=== PATIENT | female | born 1975 | race Caucasian/White ===

== ENCOUNTER 2020-12-02 14:28 | Emergency (ER) | payer OTHER, SELFPAY ==
--- NOTE | ~2020-12-02 | XR_ITS ---
EXAMINATION: XR cervical spine 4-5V DATE: 12/02/2020 15:13 INDICATION: Neck pain. Injury. TECHNIQUE: 6 views of cervical spine were obtained. COMPARISON: None. FINDINGS: There is 9 degrees dextrocurvature of cervical spine. Vertebral body heights are normal. Th ere is mildly decreased disc height at C3-C4 and C4-C5, moderately decreased disc height at C5-C6, an d severely decreased disc height at C6-C7. There is multilevel uncovertebral joint osteoarthritis, se avila on the left at C5-C6 and bilaterally at C6-C7. There is multilevel mild to moderate facet joint osteoarthritis. There is multilevel mild neural foraminal stenosis bilaterally. On the right, there i s moderate neural foraminal stenosis at C6-C7. There is mild central canal stenosis at C3-C4, C4-C5, C5-C6, and C6-C7. No prevertebral soft tissue swelling. IMPRESSION: 1. Severe cervical spondylosis. Reviewed, dictated and finalized at location A.
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
[2020-12-02 14:35] VITALS: BP 191/106; PULSE 106; RESP 18; TEMP 37.8; O2SAT 100
[2020-12-02 15:15] VITALS: BP 140/90
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
== END 2020-12-02 15:35 | disposition home or self-care (01) ==
PROVIDERS: Emergency Provider Nurse Practitioner Family; PCP Internal Medicine
DX: S16.1XXA Strain of muscle, fascia and tendon at neck level, initial encounter (principal); M47.812 Spondylosis without myelopathy or radiculopathy, cervical region; Y04.2XXA Assault by strike against or bumped into by another person, initial encounter
CPT/HCPCS: 72050; 99203; G0463

== ENCOUNTER 2022-01-16 18:44 | Emergency (ER) | payer OTHER, SELFPAY ==
[2022-01-16 18:48] VITALS: BP 138/86; PULSE 83; RESP 18; TEMP 36.1; O2SAT 100
--- NOTE | 2022-01-16 19:43 | ED.URI ---
HPI - URI/Sore Throat General Chief Complaint: Upper Respiratory Infection Stated Complaint: sore throat Source: patient, RN notes reviewed and old records reviewed Mode of arrival: ambulatory Limitations: no limitations History of Present Illness HPI Narrative: 46 year old female who [facility] with coplaints of sore throat since Wednesday. which she rates as 01/05 especially with swallowing. Patient reports that she has had COVID vaccinations and booster and she has also had flu shot.She states that she took a home COVID test on which was negative MD elicited complaint: cough and sore throat Onset (ago): day(s) (4-5 days) Consistency: intermittent Pain scale (0-10): 10 Able to tolerate fluids by mouth: Yes Treatments prior to arrival: none Related Data Home Medications Medication Instructions Recorded Confirmed amlodipine 5 mg tablet 5 mg PO DAILY 12/02/20 01/16/22 atorvastatin 20 mg tablet 20 mg PO DAILY 12/02/20 01/16/22 norethindrone 1.5 mg-ethinyl 1 tablet PO DAILY 12/02/20 01/16/22 estradiol 30 mcg(21)/iron 75 mg(7) tablet (Blisovi Fe 1.5/30 (28)) sertraline 100 mg tablet 100 mg PO DAILY 12/02/20 01/16/22 hydroxyzine HCl 25 mg tablet 25 mg PO DAILY 01/16/22 01/16/22 Allergies Allergy/AdvReac Type Severity Reaction Status Date / Time No Known Allergies Allergy Verified 12/02/20 14:45 Review of Systems Review of Systems: CONSTITUTIONAL: Reports malaise, no chills, sweats, or known fever. EYES: Denies visual changes, redness, or discharge. ENT: Reports rhinorrhea, congestion,no sinus pain, no otalgia positive for sore throat. CARDIOVASCULAR: Denies chest pain, palpitations, or edema. RESPIRATORY: No reported cough.? Denies dyspnea. GASTROINTESTINAL: Denies abdominal pain, nausea, vomiting, diarrhea SKIN: Denies rash or itching. MUSCULOSKELETAL: Denies myalgia. NEUROLOGIC: Denies headache. All systems reviewed & are unremarkable except as noted in HPI and below PMFSH Past Medical History Medical History (Updated 01/18/22 @ 22:00 by Rupinder Mcnally NP) Anxiety and depression Elevated cholesterol Hypertension Family History Family History Other Cancer Diabetes mellitus Social History Social History (Updated 01/18/22 @ 22:01 by Rupinder Mcnally NP) Smoking status: Never smoker Alcohol intake: unknown Substance use type: does not use Living arrangements: with family Gender identity (if verbalized by the patient): Female Comments At time of signature, agree with nursing past medical, surgical, social and family history. There is no relevant family history pertinent to the presenting complaint Exam Narrative: GENERAL: Well-appearing, well-nourished, and in no acute distress. HEAD: Normocephalic EYES: PERRLA, conjunctivae clear ENT: Nares clear, turbinates edematous and erythematous, clear discharge. Mucous membranes moist. TM pearly escudero with dull light reflex bilaterally; no tragal tenderness. Oropharynx erythematous without lesions. Tonsils red and enlarged and without exudate, no drooling, no hoarseness, no trismus, uvula midline. NECK: Supple. lymphadenopathy CHEST: Clear to auscultation, breath sounds equal. No wheezing, rhonchi, rales, or stridor. No respiratory distress, speaks in full sentences.SAO2 100% on room air HEART: Regular rate and rhythm. No murmur heard. SKIN: Warm, dry, no rash. NEURO: Alert and oriented x3. PSYCH: Normal mood and affect Course Course Emergency Course: Patient is aware of diagnosis, understands and agrees to treatment plan.? Anticipatory guidance given.? Patient agrees to follow-up as directed and is aware of reasons to seek care at the emergency department. Portions of this record may have been created with voice recognition software Level of Care: Express Care Visit Vital Signs Vital signs: Vital Signs Temperature 36.1 C
== END 2022-01-16 19:55 | disposition home or self-care (01) ==
PROVIDERS: Emergency Provider Registered Nurse
DX: J03.90 Acute tonsillitis, unspecified (principal); E78.00 Pure hypercholesterolemia, unspecified; I10 Essential (primary) hypertension; F41.9 Anxiety disorder, unspecified; F32.A Depression, unspecified
CPT/HCPCS: 87081; 87880; 99213; G0463

== ENCOUNTER 2022-09-28 19:30 | Emergency (ER) | payer OTHER, SELFPAY ==
--- NOTE | 2022-09-28 19:35 | ED.EYEPROB ---
HPI - Eye Problem General Chief complaint: Eye Problems Stated complaint: eyes Source: patient and RN notes reviewed History of Present Illness HPI Narrative: 47 yo F presents to urgent care with complaints of bilateral eye irritation and redness since Wednesday. Pt states she has been having various upper respiratory infection symptoms for the last week and a half. Pt states all of her symptoms have resolved but she developed these eye issues a few days ago. PT states she wakes up with her eyes matted shut with white drainage. Pt does report sneezing lately. 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 Pt also reports she is bad about taking her contacts out regularly. Denies any visual disturbance, photophobia, fevers, chills, or other symptoms today. Related Data Home Medications Medication Instructions Recorded Confirmed amlodipine 5 mg tablet 5 mg PO DAILY 12/02/20 09/28/22 atorvastatin 20 mg tablet 20 mg PO DAILY 12/02/20 09/28/22 sertraline 100 mg tablet 100 mg PO DAILY 12/02/20 09/28/22 hydroxyzine HCl 25 mg tablet 25 mg PO DAILY 01/16/22 09/28/22 apixaban 5 mg tablet (Eliquis) mg 09/28/22 Allergies Allergy/AdvReac Type Severity Reaction Status Date / Time No Known Allergies Allergy Verified 09/28/22 19:42 Review of Systems Review of Systems: CONSTITUTIONAL: Denies fever, chills, or sweats. EYES: bilateral eye redness and irritation ENT: Denies otalgia and sore throat CARDIOVASCULAR: Denies chest pain, palpitations, or edema. RESPIRATORY: Denies cough or dyspnea. GASTROINTESTINAL: Denies abdominal pain, nausea, vomiting, or diarrhea. GENITOURINARY: Denies dysuria or hematuria. SKIN: Denies rash or itching. MUSCULOSKELETAL: Denies back pain, joint pain, or myalgia. NEUROLOGIC: Denies headache, numbness, or weakness. Pertinent positives per HPI. [facility] Past Medical History Medical History (Updated 09/28/22 @ 19:47 by Radha Sequeira APRN) Anxiety and depression Elevated cholesterol Hypertension Family History Family History Other Cancer Diabetes mellitus Social History Social History (Updated 01/18/22 @ 22:01 by Rupinder Mcnally NP) Smoking status: Never smoker Alcohol intake: unknown Substance use type: does not use Living arrangements: with family Gender identity (if verbalized by the patient): Female Comments At the time of my signature, I reviewed and agree with the nursing past medical, surgical, social, and family history. There is no relevant family history pertinent to the patient complaint. Exam Narrative: GENERAL: This is a well-nourished, well-developed patient, in no apparent distress. HEAD: normocephalic, atraumatic. EYES: Sclera is erythremic bilaterally. No drainage noted. conjunctivae mildly injected. EARS: External ears normal, auditory canals clear and without drainage, TMs normal without perforation. Hearing grossly intact. NOSE: External nose normal with no obvious nasal discharge, nares without redness, no rhinorrhea. THROAT: Mucous membranes moist, posterior pharynx clear. NECK: Neck supple, non-tender without lymphadenopathy, masses or thyromegaly. CARDIOVASCULAR: Regular rate RESPIRATORY: Clear to auscultation. Breath sounds equal bilaterally. No wheezes, rales, or rhonchi. SKIN: warm, intact with no suspicious lesions or rash, good texture and turgor. NEURO: awake, alert, and oriented to person, place and time. There were no obvious focal neurologic abnormalities. Course Course Level of Care: Express Care Visit Vital Signs Vital signs: Reviewed MDM - Eye Problem MDM Narrative Medical decision making narrative: Your exam today shows Conjunctivitis, You have been given a prescription for eye drops. Use the eye drops as instructed. If you are not better in two (2) days, you need to follow up with an mine supervisor. Do not rub the e
[2022-09-28 19:43] VITALS: BP 140/85; PULSE 90; RESP 16; TEMP 36.6; O2SAT 97
== END 2022-09-28 19:52 | disposition home or self-care (01) ==
PROVIDERS: Emergency Provider Nurse Practitioner Family
DX: H10.9 Unspecified conjunctivitis (principal); E78.00 Pure hypercholesterolemia, unspecified; I10 Essential (primary) hypertension; F41.9 Anxiety disorder, unspecified; F32.A Depression, unspecified
CPT/HCPCS: 99213; G0463